=== PATIENT | male | born 1945 | race Caucasian/White ===

== ENCOUNTER → 2018-12-16 | Outpatient (CLI) | payer MEDICARE ==
--- NOTE | 2018-12-16 17:29 | Diagnostic Imaging Report ---
EXAMINATION: CT of the abdomen and pelvis without contrast. TECHNIQUE: Spiral CT images of the abdomen and pelvis were performed from the lung bases to the lesser trochanters. No intravenous contrast was given per renal stone protocol. Coronal and sagittal reformatted images were obtained. COMPARISON: None. CLINICAL HISTORY:History of urinary calculi DISCUSSION: ABSENCE OF INTRAVENOUS CONTRAST DECREASES SENSITIVITY FOR DETECTION OF FOCAL LESIONS AND VASCULAR PATHOLOGY. ABDOMEN/PELVIS: LOWER THORAX: Unremarkable. Atherosclerotic calcification of the coronary arteries. HEPATOBILIARY: Ill-defined 2.4 and 2.2 cm hypodense lesions in hepatic segment III (series 3, image 25). No intra or extrahepatic biliary ductal dilation. GALLBLADDER: Multiple radiopaque calculi are noted in the gallbladder lumen. Mild gallbladder wall thickening, measuring approximately 0.5 cm, however, the gallbladder is contracted. SPLEEN: Mild splenomegaly, measuring 16.4 cm in AP diameter. Innumerable calcified splenic granulomata PANCREAS: No focal masses or ductal dilatation. 3 mm calcifications in the inferior aspect of the pancreatic head (series 3, image 54 and 57). Punctate calcification in the pancreatic tail (3, image 45). ADRENALS: No adrenal nodules. KIDNEYS/URETERS: Right: 6 mm nonobstructing calculus in the superior pole (series 3, image 45). 2 mm nonobstructing calculus versus cortical calcification in the interpolar region (series 3, image 54). No ureteral calculi. Mild right pelviectasis with very mild distal hydroureter. Cortical scarring in the interpolar region (series 3, image 59). No other contour abnormalities or significant perinephric stranding. Left: No renal or ureteral calculi. Moderate to marked left hydronephrosis and moderate left hydroureter. Cortical scarring noted in the left kidney. Minimal perinephric stranding. PELVIC ORGANS/BLADDER: Circumferential bladder wall thickening, predominantly in the anterior inferior aspects, with prominent trabeculations. Prostate is enlarged, measuring approximately 6.3 x 6.9 x 7.1 cm (estimated volume 160 mL). PERITONEUM/RETROPERITONEUM: No free air or fluid. LYMPH NODES: Borderline enlarged distal left periaortic lymph node (series 3, image 97), which measures 1.0 cm in short axis. No other retroperitoneal or any intra-abdominal, pelvic or inguinal adenopathy. VESSELS: Atherosclerotic calcification of the abdominal aorta and iliac vessels. GI TRACT: No bowel dilation or evidence of obstruction. No pericolonic inflammatory changes. BONES AND SOFT TISSUES: No aggressive lytic lesions. Generalized osteopenia. Orthopedic hardware in the proximal right femur. Degenerative changes in bilateral hip joints and lower lumbosacral spine. IMPRESSION: 1. Right renal nonobstructing calculi. No ureteral or bladder calculi. 2. Circumferential bladder wall thickening with prominent trabeculations likely reflecting bladder outlet obstruction from enlarged prostate. 3. Moderate to marked left hydronephrosis and moderate left hydroureter and mild right pelviectasis with very mild distal right hydroureter. No obstructing lesion or stone is noted in this noncontrast exam. 4. Calcifications in the inferior aspect of the pancreatic head and pancreatic tail are indeterminate and may reflect sequela of chronic pancreatitis. Alternatively, these may represent vascular calcifications. 5. Ill-defined 2.4 and 2.2 cm hypodense lesions in hepatic segment III. Recommend contrast-enhanced CT abdomen with liver mass protocol for further evaluation. 6. Cholelithiasis, without CT evidence of cholecystitis. 7. Mild splenomegaly. Signed by: Dr. Moris Torres M.D. on 12/16/2018 5:26 PM
== END ==
LOC: CT 16:10
PROVIDERS: ATTEND Urology
DX: N20.0 Calculus of kidney (principal); K86.9 Disease of pancreas, unspecified; K76.9 Liver disease, unspecified; K80.20 Calculus of gallbladder without cholecystitis without obstruction; R16.1 Splenomegaly, not elsewhere classified
CPT/HCPCS: 74176

== ENCOUNTER 2019-04-14 05:09 | Inpatient (IN) | payer MEDICARE ==
[2019-04-11 14:06] LABS: BASOPHILS # (AUTO) 0.1 (0.0-0.1); BASOPHILS % 0.7 % (0.0-1.0); EOSINOPHILS # (AUTO) 0.3 (0.0-0.4); EOSINOPHILS % 2.3 % (0.0-6.0); HEMATOCRIT 36.8 % (38.2-49.6); HEMOGLOBIN 12.6 g/dL (14.0-18.0); LYMPHOCYTES # (AUTO) 1.8 (1.0-3.2); LYMPHOCYTES % 16.3 % (18.0-39.1); MEAN CORPUSCULAR HEMOGLOBIN 28.3 pg (28-32); MEAN CORPUSCULAR HGB CONC 34.2 g/dL (31-35); MEAN CORPUSCULAR VOLUME 82.7 fL (81-99); MONOCYTES # (AUTO) 0.6 (0.2-0.8); MONOCYTES % 5.2 % (4.4-11.3); NEUTROPHILS # (AUTO) 8.3 (2.1-6.9); NEUTROPHILS % 73.8 % (38.7-80.0); PLATELET COUNT 177 x10e3/uL (140-360); RED BLOOD COUNT 4.45 x10e6/uL (4.3-5.7); RED CELL DISTRIBUTION WIDTH 13.3 % (11.7-14.4)
[2019-04-11 14:22] LABS: CALCIUM 9.5 mg/dL (8.4-10.2); CREATININE, SERUM 4.59 mg/dL (0.72-1.25)
--- NOTE | 2019-04-11 15:40 | Diagnostic Imaging Report ---
Chest, 2 views, 04/11/2019. History: Preop, urologic procedure. Comparison: None available. Findings: The cardiomediastinal silhouette and pulmonary vasculature are within normal limits. The lungs are clear without evidence of consolidation or pleural effusion. Old right-sided rib fractures are noted. Degenerative changes are noted throughout the thoracic spine. There are no acute osseous or soft tissue abnormalities. Impression: No acute cardiopulmonary abnormality. Signed by: Brian Torres on 04/11/2019 3:36 PM
[~2019-04-14] VITALS: Ht 193 cm; Wt 93.9 kg
[~2019-04-14 05:09] MED LIST: AMBIEN10 MG PO; FLOMAX0.4 MG PO; GLYBURIDE5 MG PO; INSULIN SC; METFORMIN HCL500 MG PO
--- OUTSIDE RECORDS SUMMARY | 2019-04-14 05:30 | XMS REPORT ---
Author Author [facility] Address Unknown Phone Unavailable Care Team Providers Care Garment Fitter Name Role Phone LINDSAY PEREZ Unavailable Unavailable Problems This patient has no known problems. Allergies, Adverse Reactions, Alerts This patient has no known allergies or adverse reactions. Medications This patient has no known medications. Results Test Description Test Time Test Comments Text Results Atomic Results Result Comments CHEST 2 VIEWS 2019-04-11 15:34:00 [place] [address] Patient Name: SUN VEGA MR #: [id number] : 1945 Age/Sex: 73/M Req #: [id number] Adm Physician: Ordered by: LINDSAY PEREZ MD Report #: [id number] Location: OR Room/Bed: Procedure: [id number] DX/CHEST 2 VIEWS Exam Date: 04/11/19 Exam Time: 1413 REPORT STATUS: Signed Chest, 2 views, 04/11/2019. History: Preop, urolog ic procedure. Comparison: None available. Findings: The cardiomediastinal silhouette and pulmonary vasculature are within normal limits. The lungs are clear without evidence of consolidation or pleural effusion. Old right-sided rib fractures are noted. Degenerative changes are noted throughout the thoracic spine. There are no acute osseous or soft tissue abnormalities. Impression: No acute cardiopulmonary abnormality. Signed by: Bibiana Torres on 04/11/2019 3:36 PM Dictated By: BIBIANA TORRES MD 35 Transcribed By: JAMES on 04/11/191535 COPY TO: LINDSAY PEREZ MD RENAL SCAN W/LASIX 2019-03-14 12:18:00 [place] [address] Patient Name: SUN VEGA MR #: [id number] : 1945 Age/Sex: 73/M Req #: [id number] Adm Physician: Ordered by: LINDSAY PEREZ MD Report #: [id number] Location: [place] Room/Bed: Procedure: [id number] NM/RENAL SCAN W/LASIX Exam Date: Exam Time: REPORT STATUS: Signed Renal Scan with Lasix Washout Clinical information: Hydronephrosi s, unspecified Technique: Following intravenous administration of 10 mCi of Tc-99m MAG3, dynamic images of the kidneys in the posterior projection were obtained through 40 minutes. Lasix 40 mg was administered intravenously at 10 minutes post injection of the tracer. Report: Left kidney: Perfusion of the left kidney is prompt. The kidney has an elongated reniform shape with marked thinning of the renal cortex. Extraction of tracer from the blood pool is decreased. Clearance of tracer from the renal parenchyma is begins promptly but is not complete by the end of the study. The pelvicalyceal system is not dilated although a few calices are mildly prominent. Minimally increased pooling of tracer is seen within the pelvicalyceal system. No net drainage of tracer from the pelvicalyceal system is seen prior to administration of Lasix. No washout of tracer from the pelvicalyceal system following administration of Lasix is seen; this renders an undefined T-1/2. No significant stasis of tracer is seen within the left ureter. Right kidney: Perfusion of the left kidney is prompt. The kidney has an elongated reniform shape with marked thinning of the renal cortex. Extraction of tracer from the blood pool is decreased. Clearance of tracer from the renal parenchyma is begins promptly but is not complete by the end of the study. The pelvicalyceal system is not dilated although a few calices are mildly prominent. Minimally increased pooling of tracer is seen within the pelvicalyceal system. No net drainage of tracer from the pelvicalyceal system is seen prior to administration of Lasix. No washout of tracer from the pelvicalyceal system following administration of Lasix is seen; this renders an undefined T-1/2. No significant stasis of tracer is seen within the right ureter. Differential renal function: The left kidney contributes 50% of total renal function and the right kidney contributes 50% (normal 43-57%). Impression: Both kidneys show evidence of severe medical renal disease. The kidneys do not have sufficient function to be able to fill the pelvicalyceal systems to near capacity. Hydronephrosis is present in both kidneys, evidenced by elongated shape, thinned renal cortex. The flat renograms after administration of Lasix suggests that physiologically significant obstruction at the UPJ is present, however, the sensitivity of Lasix washout for accurate detection of significant partial obstruction is decreased due to the poor function of the kidneys. Signed by: Dr. Benjamin Joshi M.D. on 03/14/2019 12:36 PM Dictated By: BENJAMIN JOSHI MD 1236 Transcribed By: JAMES on 03/14/19 1236 COPY TO: LINDSAY PEREZ MD CT ABDOMEN/PELVIS WO 2018-12-16 17:10:00 [place] [address] Patient Name: SUN VEGA MR #: [id number] : 1945 Age/Sex: 73/M Req #: [id number] Adm Physician: Ordered by: LINDSAY PEREZ MD Report #: [id number] Location: CT Room/Bed: Procedure: [id number] CT/CT ABDOMEN/PELVIS WO Exam Date: Exam Time: REPORT STATUS: Signed EXAMINATION: CT of the abdomen and pelvis without contrast. TECH NIQUE: Spiral CT images of the abdomen and pelvis were performed from the lung bases to the lesser trochanters. No intravenous contrast was given per renal stone protocol. Coronal and sagittal reformatted images were obtained. COMPARISON: None. CLINICAL HISTORY:History of urinary calculi DISCUSSION: ABSENCE OF INTRAVENOUS CONTRAST DECREASES SENSITIVITY FOR DETECTION OF FOCAL LESIONS AND VASCULAR PATHOLOGY. ABDOMEN/PELVIS: LOWER THORAX: Unremarkable. Atherosclerotic calcification of the coronary arteries. HEPATOBILIARY: Ill-defined 2.4 and 2.2 cm hypodense lesions in hepatic segment III (series 3, image 25). No intra or extrahepatic biliary ductal dilation. GALLBLADDER: Multiple radiopaque calculi are noted in the gallbladder lumen. Mild gallbladder wall thickening, measuring approximately 0.5 cm, however, the gallbladder is contracted. SPLEEN: Mild splenomegaly, measuring 16.4 cm in AP diameter. Innumerable calcified splenic granulomata PANCREAS: No focal masses or ductal dilatation. 3 mm calcifications in the inferior aspect of the pancreatic head (series 3, image 54 and 57). Punctate calcification in the pancreatic tail (3, image 45). ADRENALS: No adrenal nodules. KIDNEYS/URETERS: Right: 6 mm nonobstructing calculus in the superior pole (series 3, image 45). 2 mm nonobstructing calculus versus cortical calcification in the interpolar region (series 3, image 54). No ureteral calculi. Mild right pelviectasis with very mild distal hydroureter. Cortical scarring in the interpolar region (series 3, image 59). No other contour abnormalities or significant perinephric stranding. Left: No renal or ureteral calculi. Moderate to marked left hydronephrosis and moderate left hydroureter. Cortical scarring noted in the left kidney. Minimal perinephric stranding. PELVIC ORGANS/BLADDER: Circumferential bladder wall thickening, predominantly in the anterior inferior aspects, with prominent trabeculations. Prostate is enlarged, measuring approximately 6.3 x 6.9 x 7.1 cm (estimated volume 160 mL). PERITONEUM/RETROPERITONEUM: No free air or fluid. LYMPH NODES: Borderline enlarged distal left periaortic lymph node (series 3, image 97), which measures 1.0 cm in short axis. No other retroperitoneal or any intra- abdominal, pelvic or inguinal adenopathy. VESSELS: Atherosclerotic calcification of the abdominal aorta and iliac vessels. GI TRACT: No bowel dilation or evidence of obstruction. No pericolonic inflammatory changes. BONES AND SOFT TISSUES: No aggressive lytic lesions. Generalized osteopenia. Orthopedic hardware in the proximal right femur. Degenerative changes in bilateral hip joints and lower lumbosacral spine. IMPRESSION: 1. Right renal nonobstructing calculi. No ureteral or bladder calculi. 2. Circumferential bladder wall thickening with prominent trabeculations likely reflecting bladder outlet obstruction from enlarged prostate. 3. Moderate to marked left hydronephrosis and moderate left hydroureter and mild right pelviectasis with very mild distal right hydroureter. No obstructing lesion or stone is noted in this noncontrast exam. 4. Calcifications in the inferior aspect of the pancreatic head and pancreatic tail are indeterminate and may reflect sequela of chronic pancreatitis. Alternatively, these may represent vascular calcifications. 5. Ill-defined 2.4 and 2.2 cm hypodense lesions in hepatic segment III. Recommend contrast-enhanced CT abdomen with liver mass protocol for further evaluation. 6. Cholelithiasis, without CT evidence of cholecystitis. 7. Mild splenomegaly. Signed by: Dr. Toby Torres M.D. on 12/16/2018 5:26 PM Dictated By: TOBY TORRES MD 25 Transcribed By: JAMES on 12/16/181725 COPY TO: LINDSAY PEREZ MD
--- OUTSIDE RECORDS SUMMARY | 2019-04-14 05:30 | XMS REPORT ---
Author Author Admin, [place] Organization [facility] Address [address] [place] [address] Phone Allergies, Adverse Reactions, Alerts Allergy Name Reaction Description Start Date Severity Status Provider No Known Allergies Dianna López MA Conditions or Problems Problem Name Problem Code Onset Date Status Entry Date Provider Comment Standard Description Annotate Chronic pain 338.29 Active Brittany Alaniz MD Other chronic pain DIABETES MELLITUS, TYPE II 250.00 Active Brittany Alaniz MD Diabetes mellitus without mention of complication, type II or unspecified type, not stated as uncontrolled Hx of benign prostatic hypertrophy V13.8 Active Brittany Alaniz MD Personal history of other specified diseases HYPERTENSION 401.9 Active Brittany Alaniz MD Unspecified essential hypertension Medication List Medication Instructions Start Date Stop Date Generic Name NDC Status Provider Patient Instruction DOXAZOSIN MESYLATE 8 MG ORAL TABLET one tablet once daily DOXAZOSIN MESYLATE 11643823176 Active Brittany Alaniz MD Active GLYBURIDE 5 MG ORAL TABLET TK 1 T PO QAM WITH JEANINE GLYBURIDE 42751332061 Active Brittany Alaniz MD Active Vital Signs Date Name Value Unit Range Description height E&M 76 [in_us] Bdy height Encounters Date Encounter Provider Code Facility 16:13:09 CDT Ofc Vst, New Level III Brittany Alaniz MD [id number] [facility]
[2019-04-14] MEDS ORDERED: CEFTRIAXONE SOD 1 GM/NS 50 ML 50 ML IV ONE (05:49)
[2019-04-14] MEDS ORDERED: B&O 60MG R/S 60 MG SUPP PR ONE (06:43)
[2019-04-14] MEDS ORDERED: IOPAMIDOL 300MG/ML 50ML INFUS..BTL IV ONE (06:43)
[2019-04-14] MEDS ORDERED: INSULIN REGULAR, HUMAN 100 UNIT/1 ML 3ML VIAL ONE (06:57)
[2019-04-14] MEDS: SODIUM CHLORIDE 0.9% 1000ML 1,000 ML IV SCH ×2 (08:22→21:42)
[2019-04-14] MEDS ORDERED: ACETAMINOPHEN 1000 MG/100 ML IV PRN (08:30)
[2019-04-14] MEDS ORDERED: ONDANSETRON HCL INJ 2MG/ML 2ML 2 MG/ML VIAL IV PRN (08:30)
[2019-04-14] MEDS ORDERED: DIPHENHYDRAMINE HCL INJ 50 MG/ML VIAL IM PRN (08:30)
[2019-04-14] MEDS ORDERED: ACETAMINOPHEN/CODEINE 300MG - 30MG TAB PO PRN (08:30)
[2019-04-14] MEDS ORDERED: B&O 60MG R/S 60 MG SUPP PR PRN (08:30)
[2019-04-14] MEDS ORDERED: FENTANYL CITRATE/PF 100MCG/2 ML INJ ONE ×4 (08:35→18:49)
--- NOTE | 2019-04-14 08:54 | Diagnostic Imaging Report ---
Exam: Retrograde bilateral ureterogram Clinical history: Hydronephrosis Total images 6 Findings: Retrograde urethrogram was performed in the OR. Radiologist was not present. There is severe hydronephrosis and hydroureter noted to opacify portion of the collecting system. A internal right ureteral stent was inserted with the proximal tip in the renal pelvis and the distal tip in the pelvic region. The bladder was not opacified and the actual location of the distal tip cannot be confirmed. Signed by: Dr. Pradip Moya MD on 04/14/2019 8:52 AM
[2019-04-14] MEDS ORDERED: HYDROMORPHONE 1MG/1ML INJ ONE ×2 (08:58→09:42)
[2019-04-14] MEDS: DOCUSATE SODIUM 100 MG CAP PO SCH ×2 (09:00→17:00)
[2019-04-14 10:33] LABS: BASOPHILS # (AUTO) 0.1 (0.0-0.1); BASOPHILS % 0.6 % (0.0-1.0); EOSINOPHILS # (AUTO) 0.3 (0.0-0.4); EOSINOPHILS % 2.7 % (0.0-6.0); HEMATOCRIT 37.4 % (38.2-49.6); HEMOGLOBIN 12.8 g/dL (14.0-18.0); LYMPHOCYTES % 19.3 % (18.0-39.1); MEAN CORPUSCULAR HEMOGLOBIN 28.5 pg (28-32); MEAN CORPUSCULAR HGB CONC 34.2 g/dL (31-35); MEAN CORPUSCULAR VOLUME 83.3 fL (81-99); MONOCYTES # (AUTO) 0.7 (0.2-0.8); MONOCYTES % 6.3 % (4.4-11.3); NEUTROPHILS # (AUTO) 7.3 (2.1-6.9); NEUTROPHILS % 69.8 % (38.7-80.0); PLATELET COUNT 156 x10e3/uL (140-360); RED BLOOD COUNT 4.49 x10e6/uL (4.3-5.7); RED CELL DISTRIBUTION WIDTH 13.4 % (11.7-14.4)
[2019-04-14 10:46] LABS: INR 0.99; PARTIAL THROMBOPLASTIN TIME 32.4 seconds (23.8-35.5); PROTHROMBIN TIME 13.7 seconds (11.9-14.5)
[2019-04-14 10:54] LABS: ANION GAP 16.6 mmol/L (8-16); CALCIUM 8.8 mg/dL (8.4-10.2); CREATININE, SERUM 4.75 mg/dL (0.72-1.25); POTASSIUM 4.6 mmol/L (3.5-5.1)
--- NOTE | 2019-04-14 13:00 | NUR ---
RECEIVED REPORT FROM [facility]. PATIENT ARRIVED TO UNIT AT 1300 FROM PACU VIA STRETCHER. ALEXANDER IN PLACE WITH BLADDER IRRIGATION. PATIENT AWAKE, ALERT AND ORIENTED, DENIES PAIN AT THIS TIME. TRANSFERRED TO BED WITH MINIMAL ASSIST. ORIENTED TO ROOM, CALL LIGHT, BED RAILS, TV, VERBALIZED UNDERSTANDING. BELONGINGS WITH PATIENT. CALL LIGHT WITHIN REACH.
[2019-04-14 13:07] VITALS: BP 184/91
[2019-04-14 13:25] VITALS: BP 184/91
[2019-04-14] MEDS ORDERED: DEXTROSE 50% SYRINGE 50 ML IV PRN (13:45)
[2019-04-14] MEDS ORDERED: AMLODIPINE BESYLATE 5 MG TAB PO ONE (14:30)
[2019-04-14] MEDS ORDERED: LIDOCAINE HCL 1% LOCAL INJ 20 ML VIAL ONE ×2 (14:55)
[2019-04-14] MEDS ORDERED: MIDAZOLAM HCL 2 MG/2 ML VIAL ONE ×2 (15:12→16:47)
--- NOTE | 2019-04-14 15:25 | NUR ---
PATIENT OFF THE UNIT TO RADIOLOGY FOR PROCEDURE.
[2019-04-14 16:00] VITALS: BP 183/93
[2019-04-14] MEDS: INSULIN LISPRO 100 UNIT/1 ML 3ML VIAL SQ SCH ×2 (16:30→21:00)
[2019-04-14] MEDS ORDERED: SODIUM CHLORIDE 0.9% 500ML 500 ML ONE (16:36)
[2019-04-14] MEDS ORDERED: DEXAMETHASONE SOD PHOS INJ 4 MG/ML VIAL ONE (18:31)
[2019-04-14] MEDS ORDERED: GLYCOPYRROLATE INJ 0.2 MG/ML VIAL ONE (18:31)
[2019-04-14] MEDS ORDERED: LIDOCAINE HCL 2% LOCAL INJ 5 ML SDV VIAL INJ ONE (18:31)
[2019-04-14] MEDS ORDERED: ONDANSETRON HCL INJ 2MG/ML 2ML 2 MG/ML VIAL ONE (18:31)
[2019-04-14] MEDS ORDERED: SEVOFLURANE INHAL SOLN 250 ML PEN BTL ONE (18:31)
[2019-04-14] MEDS ORDERED: PROPOFOL IV EMULSION 10 MG/ML 20 ML VIAL ONE (18:31)
--- NOTE | 2019-04-14 19:10 | NUR ---
Received the patient in report.stable condition.
[2019-04-14 20:00] VITALS: BP 180/81
[2019-04-14] MEDS ORDERED: ZOLPIDEM TARTRATE 10 MG TAB PO PRN (21:00)
--- NOTE | 2019-04-14 21:00 | History and Physical ---
CHIEF COMPLAINT: Worsening of renal failure and obstructive uropathy. HISTORY OF PRESENT ILLNESS: This is a 73-year-old male with a past medical history of obstructive uropathy, BPH, hypertension, diabetes, was in his usual state of health until the patient was seen by Dr. Longo in office for his obstruction uropathy, BPH, renal failure. The patient was admitted for stent today, but they put a left ureteral stent, but unable to do anything on the right side, so he was admitted for further. Invasive Radiology's opinion and care also obtained. Renal consult for worsening of renal failure. No fever, no headache, no dizziness, no leg pain or leg swelling, no abdominal pain, no nausea, no vomiting, no diarrhea, no constipation. ALLERGIES: NO KNOWN DRUG ALLERGIES. PAST MEDICAL HISTORY: 1. Hypertension. 2. Diabetes mellitus type 2. 3. Obstructive uropathy. 4. BPH. PAST SURGICAL HISTORY: Just recent stent and on right ureter today. HABITS: Smoking cigarette occasionally and occasional alcohol use. No illicit drug use. SOCIAL HISTORY: The patient is , lives with his . REVIEW OF SYSTEMS: GENERAL: Denies fatigue and weakness. HEENT: No diplopia or blurring of vision. CARDIOPULMONARY: No chest pain. No shortness of breath. No cough. ALIMENTARY SYSTEM: No nausea or vomiting. GENITOURINARY SYSTEM: He has some dysuria. MUSCULOSKELETAL SYSTEM: No joint pain. CENTRAL NERVOUS SYSTEM: No focal weakness. PHYSICAL EXAMINATION: GENERAL: A 73-year-old male, who is alert, oriented x3. No gross distress. VITAL SIGNS: Temperature 98.2, pulse 80, respiratory rate 18, blood pressure 157/80. HEENT: Head is atraumatic and normocephalic. Pupils bilaterally equal to light. EOMs intact. NECK: Supple. No JVD. No carotid bruit. LUNGS: Clear to auscultation and percussion bilaterally. No added sounds. HEART: S1, S2. Regular rate and rhythm. No S3, no S4 or murmur. ABDOMEN: Soft and nontender. No guarding. No rigidity. EXTREMITIES: No pedal edema. Peripheral pluses +1. MANAGER DISTRIBUTION: Grossly nonfocal. LABORATORY DATA: Chest x-ray normal. CBC, white count 10.40, hemoglobin 12.8, hematocrit 37.4, platelets are 156. Sodium 137, potassium 4.6, BUN 66, creatinine 4.75. ASSESSMENT: 1. Worsening of renal failure. 2. Obstructive uropathy, status post left ureteral stent, still right obstructive uropathy. 3. Diabetes. 4. Hypertension. PLAN: Admit to surgical floor. Nephrology consult Dr. Roth. CBC, CMP in the morning. Sliding scale blood sugar. Continue home medicine. Add amlodipine 5 mg q.a.m. daily. Blood sugar checkup before meals and at bedtime with sliding scale. Continue Flomax. Case discussed with Dr. Longo. MD ADOLPH Cline/MODL /[id number]
[2019-04-14 22:43] VITALS: BP 150/64
[2019-04-14 22:58] VITALS: BP 150/64
[2019-04-15] VITALS: BP 160/72
--- NOTE | 2019-04-15 02:24 | NUR ---
VOMITED X1.INJ.ZOFRAN 4MG IV GIVEN.ALEXANDER CARE GIVEN.NO RESP.DISTRESS.REFUSED TO TAKE PAIN MEDICATION.RESTING COMFORTABLY.BED LOCKED AND IN LOWEST POSITION.PHONE AND CALL LIGHT WITHIN REACH.INSTRUCTED TO CALL FOR ASSISTANCE NEEDED.
[2019-04-15 04:00] VITALS: BP 145/73
[2019-04-15] MEDS ORDERED: CEFTRIAXONE SOD 1 GM/NS 50 ML 50 ML IV SCH (06:00)
[2019-04-15 06:04] LABS: BASOPHILS # (AUTO) 0.1 (0.0-0.1); BASOPHILS % 0.5 % (0.0-1.0); EOSINOPHILS # (AUTO) 0.2 (0.0-0.4); HEMATOCRIT 32.8 % (38.2-49.6); HEMOGLOBIN 11.1 g/dL (14.0-18.0); LYMPHOCYTES # (AUTO) 2.1 (1.0-3.2); LYMPHOCYTES % 17.3 % (18.0-39.1); MEAN CORPUSCULAR HEMOGLOBIN 28.4 pg (28-32); MEAN CORPUSCULAR HGB CONC 33.8 g/dL (31-35); MEAN CORPUSCULAR VOLUME 83.9 fL (81-99); MONOCYTES # (AUTO) 0.8 (0.2-0.8); MONOCYTES % 6.9 % (4.4-11.3); NEUTROPHILS # (AUTO) 8.7 (2.1-6.9); NEUTROPHILS % 72.2 % (38.7-80.0); PLATELET COUNT 168 x10e3/uL (140-360); RED BLOOD COUNT 3.91 x10e6/uL (4.3-5.7); RED CELL DISTRIBUTION WIDTH 13.5 % (11.7-14.4)
[2019-04-15 06:32] LABS: ALBUMIN/GLOBULIN RATIO 0.9 (0.8-2.0); ANION GAP 15.4 mmol/L (8-16); CALCIUM 8.3 mg/dL (8.4-10.2); CREATININE, SERUM 4.66 mg/dL (0.72-1.25); POTASSIUM 4.4 mmol/L (3.5-5.1)
--- NOTE | 2019-04-15 06:50 | NUR ---
RECEIVED REPORT FROM [facility] ACOSTA. PATIENT AWAKE AT THIS TIME, DENIES PAIN. NO VISIBLE SIGNS OF DISTRESS NOTED. CALL LIGHT WITHIN REACH.
--- NOTE | 2019-04-15 07:00 | NUR ---
BED SIDE SHIFT REPORT GIVEN TO ONCOMING RN.STABLE CONDITION.
--- NOTE | 2019-04-15 07:20 | NUR ---
PER DR. Silvio PEREZ, PATIENT IS CLEARED FOR DISCHARGE FROM HIS STANDPOINT. CONTINUOUS BLADDER IRRIGATION TO BE DISCONTINUED, KEEP ALEXANDER IN PLACE. RIGHT NEPHROSTOMY TUBE TO BE DISCONTINUED AND CLAMPED. PATIENT TO ARRANGE FOLLOW UP FOR NEXT WEEK.
[2019-04-15] MEDS: INSULIN LISPRO 100 UNIT/1 ML 3ML VIAL SQ SCH ×2 (07:30→11:30)
[2019-04-15 08:00] VITALS: BP 182/88
--- NOTE | 2019-04-15 08:15 | NUR ---
DR. HOUSTON AT BEDSIDE. PATIENT CAN BE DISCHARGED ONCE CLEARED FROM NEPHROLOGY. DISCHARGE WITH HOME HEALTH AND FOLLOW UP WITHIN ONE WEEK.
[2019-04-15 08:31] VITALS: BP 182/88
[2019-04-15] MEDS ORDERED: AMLODIPINE BESYLATE 5 MG TAB PO SCH (09:00)
[2019-04-15] MEDS ORDERED: TAMSULOSIN HCL 0.4 MG CAP PO SCH (09:00)
[2019-04-15] MEDS: DOCUSATE SODIUM 100 MG CAP PO SCH (10:50)
[2019-04-15 11:10] LABS: ANION GAP 14.4 mmol/L (8-16); CALCIUM 7.9 mg/dL (8.4-10.2); CREATININE, SERUM 4.47 mg/dL (0.72-1.25); POTASSIUM 4.4 mmol/L (3.5-5.1)
--- NOTE | 2019-04-15 11:15 | NUR ---
PER DR. Patrizia IGLESIAS, PATIENT IS CLEARED FOR DISCHARGE FROM HIS POINT OF VIEW. PATIENT IS TO FOLLOW UP AT THE [facility] OFFICE. BMP TO BE CHECKED ON 04/17, RENAL LABS 04/22, AND FOLLOW UP APPOINTMENT FOR 04/24/19. DR. HOUSTON NOTIFIED.
[2019-04-15] MEDS: SODIUM CHLORIDE 0.9% 1000ML 1,000 ML IV SCH (11:19)
[2019-04-15 12:00] VITALS: BP 186/108
--- NOTE | 2019-04-15 12:30 | NUR ---
CALLED DR. Joshua HOUSTON AT [phone] REGARDING BP OF 186/108. SPOKE TO JOSIE. PAGED AWAITING CALL BACK.
--- NOTE | 2019-04-15 13:20 | NUR ---
DR. HOUSTON CALLED BACK. ORDERED FOR CLONIDINE 0.1MG PO NOW, THEN CLONIDINE 0.1MG PO EVERY 8 HOURS PRN SBP GREATER THAN 160 OR DBP GREATER THAN 100. ORDER READ BACK AND VERIFIED.
[2019-04-15] MEDS ORDERED: CLONIDINE HCL 0.1 MG TAB PO PRN (13:30)
--- NOTE | 2019-04-15 14:00 | NUR ---
SPOKE WITH PT ABOUT HOME HEALTH ORDER, HE SIGNED CHOICE FOR [facility], FILED IN CHART AND FAXED TO COMPANY.
[2019-04-15 14:10] VITALS: BP 175/86
--- NOTE | 2019-04-15 14:15 | NUR ---
PATIENT REQUESTING TO LEAVE AGAINST MEDICAL ADVICE. DR. Joshua HOUSTON CALLED ON [phone]. DR. HOUSTON ON PHONE WITH PATIENT. ADVISED OF RISKS OF LEAVING AGAINST MEDICAL ADVICE. PATIENT VERBALIZED UNDERSTANDING AND REQUESTS TO LEAVE DESPITE RISKS. RN NURSE TENNIS INSTRUCTOR NOTIFIED.
[2019-04-15] MEDS ORDERED: CLONIDINE HCL 0.1 MG TAB PO ONE (14:20)
--- NOTE | 2019-04-15 14:47 | NUR ---
PATIENT LEFT AGAINST MEDICAL ADVICE WITHOUT INCIDENT. IV DISCONTINUED WITH DISTAL TIP INTACT, DRESSING APPLIED WITH NO BLEEDING NOTED. NEPHROSTOMY AND ALEXANDER CATHETER REMAIN IN PLACE. SUPPLIES PROVIDED WITH SELF CARE INSTRUCTIONS. VERBALIZED UNDERSTANDING WITH UNSUCCESSFUL RETURN DEMONSTRATION. ALL BELONGINGS RETURNED TO PATIENT. REFUSED ASSISTANCE. AMBULATED INDEPENDENTLY TO PRIVATE VEHICLE.
--- NOTE | 2019-04-15 18:00 | Consultation ---
DATE OF CONSULTATION: 04/15/2019 Renal Consult REASON FOR CONSULT: Acute kidney failure on chronic kidney disease. HISTORY OF PRESENT ILLNESS: This is a 73-year-old male with history of hypertension, type 2 diabetes mellitus, BPH, and obstructive uropathy, who was seen by Dr. Longo for his obstructive uropathy. The patient had left ureteral stent and was admitted and all also had right nephroureteral stent and a Marc placed secondary to a large prostate. PAST SURGICAL HISTORY: 1. Right ureteral stent. 2. Left ureteral stent. SOCIAL HISTORY: Smoking cigarette occasionally. Occasional alcohol. Lives with his . PAST MEDICAL HISTORY: Include: 1. Hypertension. 2. Type 2 diabetes mellitus. 3. Obstructive uropathy. 4. BPH. 5. CKD stage 4 with baseline creatinine close to 4 as outpatient in March. REVIEW OF SYSTEMS: No fatigue. No weakness. No diplopia. No chest pain. No shortness of breath. No change in vision. No change in hearing. No sensory loss or motor loss. Positive blood in the urine. No skin changes. Basically otherwise negative. PHYSICAL EXAMINATION: GENERAL: Alert, following commands. HEENT: Pupils equal, reactive to light and accommodation. NECK: No JVD. No bruit. LUNGS: Rhonchi. No rales. HEART: Regular rate and rhythm. No S3. No S4. ABDOMEN: Nontender and nondistended. No hepatomegaly or splenomegaly. EXTREMITIES: No clubbing. No cyanosis. No edema. ASSESSMENT AND PLAN: 1. Obstructive uropathy, status post Marc and stent. Currently, creatinine is 4.6, upon repeat at 10 o'clock, it is improved to 4.47. 2. Anemia of chronic disease, currently with a hemoglobin of 11.1, but he is also having hematuria. 3. Hypertension, currently stable. 4. Type 2 diabetes mellitus. We will monitor his glucose. 5. Obstructive uropathy, status post stenting. Following with Urology. 6. Chronic kidney disease, stage 4. We will follow up as outpatient. The patient will see me in 2 weeks and he will have labs weekly. The patient is adamant about going home today. Ton Jim MD MA/MICAELA /[id number]
--- NOTE | 2019-04-25 14:21 | Diagnostic Imaging Report ---
Exam: Right nephroureteral stent insertion Clinical History: Right hydronephrosis Consent: Benefits and risks were explained to the patient who gave consent to the procedure. Sedation: The procedure was performed with conscious sedation. Continuous cardiorespiratory monitoring was performed by a registered nurse throughout the procedure. The total sedation time is 45 minutes. Fluoro Time: 5.8 Minutes Total Images: 5 Medication: Versed 3 mg IV, fentanyl 150 mcg IV Procedure: Sterile barrier technique was followed including cap, mask, sterile gown, sterile gloves, sterile sheet, hand hygiene and 2% chlorhexidine for cutaneous antisepsis. The right flank was prepped and draped in usual sterile fashion. 2% lidocaine was used as local anesthetic. Under ultrasound guidance, the right interpolar region renal calyx was accessed followed by antegrade nephrostogram which demonstrated severe hydronephrosis. Under fluoroscopic guidance, a 10.2 [place] nephroureteral stent was inserted with the distal tip in the urinary bladder and the proximal loop in the renal pelvis. The catheter was secured using silk and left to gravity drainage. Hemostasis was achieved. The patient tolerated the procedure well without any adverse reactions. He left the department in stable condition. Complication: None immediate Impression: 1. Right nephroureteral stent insertion as described. Signed by: Dr. Pradip Moya MD on 04/14/2019 6:19 PM
--- NOTE | 2019-05-19 06:29 | Operative Report ---
DATE OF PROCEDURE: 04/14/2019 SURGEON: Sergio Longo MD PREOPERATIVE DIAGNOSES: 1. Left hydronephrosis. 2. Urinary tract infections. 3. Hematuria. POSTOPERATIVE DIAGNOSES: 1. Left hydronephrosis. 2. Urinary tract infections. 3. Hematuria. OPERATIONS PERFORMED: 1. One cystourethroscopy with left ureteral catheterization and retrograde ureteropyelography (separate procedure performed for the hematuria and urinary tract infections). 2. Interpretation of retrograde ureteropyelography. 3. Supervision of fluoroscopy, no radiologist present. 4. Cystourethroscopy with insertion of left indwelling ureteral stent (separate procedure performed for the diagnosis of the hydronephrosis). 5. Interpretation of cystography. ANESTHESIA: General. COMPLICATIONS: None. CLINICAL SUMMARY: Taras Doshi is a 73-year-old with bilateral hydronephrosis and renal insufficiency. He is brought for placement of bilateral stents. He is aware of the risks of bleeding, infection, injury to adjacent structures, need for additional procedures and elected to proceed. OPERATIVE PROCEDURE IN DETAIL: Informed consent was verified. Taras Doshi was properly identified, taken to the operating room, placed on the cystoscopy table in supine position. Anesthesia was uneventfully begun. The patient was then carefully gently repositioned in a dorsal lithotomy position with all pressure points well padded. His genitalia were prepared and draped in usual sterile fashion. The cystoscope sheath with the visual obturator in place was atraumatically inserted. The patient's urethra, it was guided down to the unremarkable distal urethra through the normal sphincteric region through the prostate bed, which was significant for a very large visually obstructing BPH with kissing lateral lobes and a prominent median lobe. We entered the patient's bladder. Panendoscopy revealed no suspicious mucosal lesions. There were trabeculations noted. There was active bleeding that was noted from the prostate. Visualization was suboptimal. Somehow, we found the left ureter, guided the wire into it as well as an open-ended catheter and retrograde pyelograms were performed. With cystoscopic fluoroscopic guidance, we placed an indwelling ureteral stent, coiled in the patient's left kidney as well as the patient's bladder. The retaining suture was cut short. This was a very difficult stent placement due to severe tortuosity. Interpretation of retrograde ureteropyelography contrast was instilled in a retrograde fashion on the left hand side. There was chronic appearing fairly severe hydronephrosis. There was severe ureteral tortuosity. The stent was coiled the patient's kidneys as well as the patient's bladder at the end of the case and it still exhibited the ureteral tortuosity. We were unable to find the right ureteral orifice. This is despite utilizing even laser sheath, so that he can have continuous irrigation. We therefore removed the cystoscope, placed a Marc catheter, placed him on irrigation. A belladonna opium suppository was placed revealing a larger than 50 g prostate that is smooth, non-fluctuant without any nodules. The patient was then uneventfully reversed from anesthesia and taken to recovery room in stable condition. There were no complications to the procedure. The patient tolerated the procedure well. Plans will be to admit the patient, provide irrigation, and have Interventional Radiology place a stent if possible. Sergio Longo MD [place]/MODL /[id number] cc: Thompson Dominguez MD
== END 2019-04-15 14:47 | disposition left against medical advice (07) | DRG 660 ==
LOC: OR 05:09 → PACU V 08:26 → MED/SURG 13:10
PROVIDERS: ADMIT Internal Medicine; ATTEND Internal Medicine
PROC: 0T778DZ Dilation of Left Ureter with Intraluminal Device, Via Natural or Artificial Opening Endoscopic (ICD-10-PCS; 2019-04-14)
PROC: BT141ZZ Fluoroscopy of Kidneys, Ureters and Bladder using Low Osmolar Contrast (ICD-10-PCS; 2019-04-14)
PROC: 0T9330Z Drainage of Right Kidney Pelvis with Drainage Device, Percutaneous Approach (ICD-10-PCS; 2019-04-14)
PROC: 0T768ZZ Dilation of Right Ureter, Via Natural or Artificial Opening Endoscopic (ICD-10-PCS; principal; 2019-04-14 07:00)
DX: N13.30 Unspecified hydronephrosis (principal); N13.8 Other obstructive and reflux uropathy; N40.1 Benign prostatic hyperplasia with lower urinary tract symptoms; N39.0 Urinary tract infection, site not specified; N17.9 Acute kidney failure, unspecified; N18.4 Chronic kidney disease, stage 4 (severe); I10 Essential (primary) hypertension; E11.9 Type 2 diabetes mellitus without complications; R35.1 Nocturia; D63.8 Anemia in other chronic diseases classified elsewhere; E11.22 Type 2 diabetes mellitus with diabetic chronic kidney disease; I12.9 Hypertensive chronic kidney disease with stage 1 through stage 4 chronic kidney disease, or unspecified chronic kidney disease; Z79.4 Long term (current) use of insulin; R31.9 Hematuria, unspecified
CPT/HCPCS: 36415; 50433; 71046; 74420; 74470; 76942; 80048; 80053; 82948; 83036; 85025; 85610; 85730; 87086; 87186; 93005; C1758; C1769; C2617; C2625; J0696; J1100; J1170; J1817; J2001; J2250; J2405; J3010; J7030; J7040

== ENCOUNTER 2019-05-09 13:22 | Inpatient (IN) | payer MEDICARE ==
[~2019-05-09] VITALS: Ht 193 cm; Wt 93.9 kg
[~2019-05-09 13:22] MED LIST changes: +CEFTRIAXONE SOD 1 GM/NS 50 ML 50 ML IV ONE; +GENTAMICIN 80MG/NS 100 ML 200 ML IV ONE; +SODIUM CHLORIDE 0.9% 1000ML 1,000 ML ONE
[2019-05-09] MEDS ORDERED: INSULIN REGULAR, HUMAN 100 UNIT/1 ML 3ML VIAL ONE ×2 (13:38→14:20)
[2019-05-09] MEDS ORDERED: B&O 60MG R/S 60 MG SUPP PR ONE (13:42)
[2019-05-09] MEDS ORDERED: IOPAMIDOL 300MG/ML 50ML INFUS..BTL IV ONE (13:42)
[2019-05-09] MEDS ORDERED: FENTANYL CITRATE/PF 100MCG/2 ML INJ ONE ×2 (13:54→17:28)
[2019-05-09] MEDS ORDERED: MIDAZOLAM HCL 2 MG/2 ML VIAL ONE (13:54)
[2019-05-09] MEDS ORDERED: ONDANSETRON HCL INJ 2MG/ML 2ML 2 MG/ML VIAL ONE (15:04)
[2019-05-09] MEDS ORDERED: LIDOCAINE HCL 2% LOCAL INJ 5 ML SDV VIAL INJ ONE (15:04)
[2019-05-09] MEDS ORDERED: PROPOFOL IV EMULSION 10 MG/ML 20 ML VIAL ONE (15:04)
[2019-05-09] MEDS ORDERED: DEXAMETHASONE SOD PHOS INJ 4 MG/ML VIAL ONE (15:04)
[2019-05-09] MEDS ORDERED: SEVOFLURANE INHAL SOLN 250 ML PEN BTL ONE (15:04)
[2019-05-09] MEDS ORDERED: ACETAMINOPHEN 1000 MG/100 ML IV ONE (15:04)
[2019-05-09] MEDS ORDERED: SOD CHL 0.45%/POT CHL 20MEQ 1,000 ML IV SCH (16:25)
[2019-05-09] MEDS ORDERED: B&O 60MG R/S 60 MG SUPP PR PRN (16:30)
[2019-05-09] MEDS ORDERED: ACETAMINOPHEN/CODEINE 300MG - 30MG TAB PO PRN (16:30)
[2019-05-09] MEDS ORDERED: ONDANSETRON HCL INJ 2MG/ML 2ML 2 MG/ML VIAL IV PRN (16:30)
[2019-05-09] MEDS ORDERED: MORPHINE SULFATE INJ 4 MG/ML INJ 1ML ONE (16:46)
[2019-05-09] MEDS ORDERED: HYDROMORPHONE 1MG/1ML INJ ONE (17:03)
[2019-05-09 17:20] LABS: ANION GAP 12.7 mmol/L (8-16); CALCIUM 8.6 mg/dL (8.4-10.2); POTASSIUM 4.7 mmol/L (3.5-5.1)
[2019-05-09 17:58] LABS: BASOPHILS % 0.4 % (0.0-1.0); EOSINOPHILS # (AUTO) 0.2 (0.0-0.4); EOSINOPHILS % 1.5 % (0.0-6.0); HEMATOCRIT 29.9 % (38.2-49.6); HEMOGLOBIN 9.9 g/dL (14.0-18.0); LYMPHOCYTES # (AUTO) 0.9 (1.0-3.2); LYMPHOCYTES % 9.7 % (18.0-39.1); MEAN CORPUSCULAR HEMOGLOBIN 28.2 pg (28-32); MEAN CORPUSCULAR HGB CONC 33.1 g/dL (31-35); MEAN CORPUSCULAR VOLUME 85.2 fL (81-99); MONOCYTES # (AUTO) 0.3 (0.2-0.8); MONOCYTES % 3.1 % (4.4-11.3); NEUTROPHILS # (AUTO) 8.1 (2.1-6.9); NEUTROPHILS % 83.8 % (38.7-80.0); PLATELET COUNT 198 x10e3/uL (140-360); RED BLOOD COUNT 3.51 x10e6/uL (4.3-5.7); RED CELL DISTRIBUTION WIDTH 12.5 % (11.7-14.4)
[2019-05-09] MEDS ORDERED: ACETAMINOPHEN 1000 MG/100 ML IV PRN (18:00)
[2019-05-09] MEDS ORDERED: ZOLPIDEM TARTRATE 10 MG TAB PO PRN (19:45)
[2019-05-09] MEDS ORDERED: DEXTROSE 50% SYRINGE 50 ML IV PRN (19:45)
[2019-05-09 20:12] VITALS: BP 137/65
[2019-05-09] MEDS: DOCUSATE SODIUM 100 MG CAP PO SCH (21:45)
[2019-05-09] MEDS: PHENAZOPYRIDINE HCL 100 MG TAB PO SCH (21:45)
[2019-05-09] MEDS: INSULIN LISPRO 100 UNIT/1 ML 3ML VIAL SQ SCH (21:45)
[2019-05-10] VITALS (8 sets, daily range): BP systolic 117–159; BP diastolic 54–74
[2019-05-10] MEDS: SODIUM CHLORIDE 0.45% 1,000 ML IV SCH ×3 (02:33→17:00)
--- NOTE | 2019-05-10 03:36 | History and Physical ---
CHIEF COMPLAINT: 1. Benign prostatic hypertrophy. 2. Obstructive uropathy. HISTORY OF PRESENT ILLNESS: This is a 74-year-old male with past medical history of chronic renal failure, hypertension, diabetes, obstructive uropathy. The patient had recently put a left urostomy tube and a right stent by Dr. Longo, but patient is still not getting better. The obstruction not relieved. The patient also had benign prostatic hypertrophy. The patient underwent a TURP today by Dr. Longo. The patient is stable postoperatively. No chest pain. No shortness of breath. No fever. No cough. No leg pain. No leg swelling. Has mild nausea. ALLERGIES: NO KNOWN DRUG ALLERGIES. PAST MEDICAL HISTORY: 1. Diabetes mellitus type 2. 2. Obstructive uropathy. 3. Benign prostatic hypertrophy. 4. Hypertension. PAST SURGICAL HISTORY: History of recent stent on right ureter as well as left urostomy tube recently last month. HABITS: Denies illicit drug use. Smoking cigarettes occasionally and occasional alcohol use. SOCIAL HISTORY: The patient is , lives with his . REVIEW OF SYSTEMS: CONSTITUTIONAL: Denies fatigue or weakness. HEENT: No diplopia or blurring of vision. CARDIOPULMONARY: No chest pain. No shortness of breath. ALIMENTARY SYSTEM: No nausea, no vomiting. GENITOURINARY: No dysuria. No hematuria. MUSCULOSKELETAL: No joint pain. CENTRAL NERVOUS: No focal weakness. No seizures. PHYSICAL EXAMINATION: GENERAL: This is a 74-year-old male who is alert, oriented x3, in no gross distress. VITAL SIGNS: Temperature 97, pulse 64, respiratory rate 18, blood pressure 138/71. HEENT: Head is atraumatic and normocephalic. Pupils bilaterally equal to light. Extraocular muscles intact. NECK: Supple. No JVD. No carotid bruit. LUNGS: Clear to auscultation and percussion bilaterally. No added sound. HEART: S1, S2. Regular rate and rhythm. No S3, S4 or murmur. ABDOMEN: Soft, nontender. No guarding or rigidity. EXTREMITIES: No pedal edema. Peripheral pluses +1. PEDIATRIC PHYSICAL THERAPIST: Grossly nonfocal. LABORATORY DATA: Sodium 134, potassium 4.7, BUN 63, creatinine 4, sugar 180. White count 9.72, hemoglobin 9.9, hematocrit 29.9, platelet is 198. ASSESSMENT: 1. Obstructive uropathy. 2. Benign prostatic hypertrophy, status post transurethral resection of the prostate today. 3. Bilateral ureteral blockage, status post stent. 4. Acute on chronic renal failure. 5. Diabetes mellitus type 2. 6. Hypertension. 7. Anemia. PLAN: Admit to surgical postoperative care by Dr. Longo with IV fluid. We will put on sliding scale lab in the morning. Renal consult with Dr. Jim. Case discussed with the patient all condition, prognosis. MD ADOLPH Cline/MICAELA /[id number]
[2019-05-10 06:14] LABS: BASOPHILS % 0.2 % (0.0-1.0); EOSINOPHILS % 0.1 % (0.0-6.0); HEMATOCRIT 27.2 % (38.2-49.6); LYMPHOCYTES # (AUTO) 1.3 (1.0-3.2); MEAN CORPUSCULAR HEMOGLOBIN 28.1 pg (28-32); MEAN CORPUSCULAR HGB CONC 33.1 g/dL (31-35); MONOCYTES # (AUTO) 0.9 (0.2-0.8); MONOCYTES % 6.2 % (4.4-11.3); NEUTROPHILS # (AUTO) 12.1 (2.1-6.9); NEUTROPHILS % 83.3 % (38.7-80.0); PLATELET COUNT 219 x10e3/uL (140-360); RED CELL DISTRIBUTION WIDTH 12.6 % (11.7-14.4)
[2019-05-10 06:39] LABS: ALBUMIN 2.2 g/dL (3.5-5.0); ALBUMIN/GLOBULIN RATIO 0.6 (0.8-2.0); ANION GAP 11.3 mmol/L (8-16); CALCIUM 8.3 mg/dL (8.4-10.2); CREATININE, SERUM 4.15 mg/dL (0.72-1.25); POTASSIUM 5.3 mmol/L (3.5-5.1)
--- NOTE | 2019-05-10 06:55 | NUR ---
Received patient lying in bed with eyes open. Respiration even and unlabored without SOB. Urinary catheter in placed, intact, draining dark duncan-colored urine to bag. Call light in reach.
[2019-05-10] MEDS: INSULIN LISPRO 100 UNIT/1 ML 3ML VIAL SQ SCH ×4 (07:30→21:30)
[2019-05-10] MEDS: DOCUSATE SODIUM 100 MG CAP PO SCH ×2 (08:49→17:38)
[2019-05-10] MEDS: FAMOTIDINE 20 MG/2 ML VIAL IV SCH ×2 (08:49→17:37)
[2019-05-10] MEDS: PHENAZOPYRIDINE HCL 100 MG TAB PO SCH ×3 (08:50→17:38)
[2019-05-10] MEDS: TAMSULOSIN HCL 0.4 MG CAP PO SCH (08:50)
--- NOTE | 2019-05-10 11:17 | Consultation ---
DATE OF CONSULTATION: 05/10/2019 Renal Consultation REASON FOR CONSULTATION: Acute kidney injury on chronic kidney disease and hyperkalemia. HISTORY OF PRESENT ILLNESS: A 74-year-old male with a history of chronic kidney disease due to obstructive uropathy, hypertension, and diabetes, who was admitted on 05/09/2019 for TURP, removal of nephrostomy tube, and right stent placement on 05/09/2019. The patient recently had a left urostomy tube placed, but kidney function was not improving. The patient was admitted again on 05/09/2019. Today, he was noted to have elevated creatinine, hyperkalemia, and Nephrology consultation was called. The patient does take some occasional Aleve at home and denies ever seeing a vp public relations in the past, just follows with urologists. REVIEW OF SYSTEMS: A 12-point review of systems completed. All systems negative other than mentioned in the HPI above. PAST MEDICAL HISTORY: 1. Chronic kidney disease, unknown baseline. 2. Diabetes type 2. 3. Obstructive uropathy. 4. BPH. 5. Hypertension. PAST SURGICAL HISTORY: History of right ureteral stent as well as left urostomy tube. SOCIAL HISTORY: No alcohol. Positive tobacco. No IV drugs. FAMILY HISTORY: No kidney disease. His family is all . ALLERGIES: NO KNOWN DRUG ALLERGIES. CURRENT MEDICATIONS: See list. PHYSICAL EXAMINATION: VITAL SIGNS: Blood pressure 120/54, pulse 69, respiratory rate 18, and temperature 96.2. GENERAL: In no apparent distress. HEENT: Oropharynx clear. No scleral icterus. No periorbital edema. NECK: Supple. No elevation in jugular venous pressure. No lymphadenopathy. CHEST: Clear to auscultation anteriorly bilaterally. CARDIOVASCULAR: Regular rhythm. No murmurs or rubs. ABDOMEN: Soft. Positive bowel sounds. No tenderness. No rebound. EXTREMITIES: No edema. No clubbing. No cyanosis. SKIN: Warm. : Marc catheter with gross hematuria. LABORATORY DATA: Creatinine on 04/11/2019, was 4.59. Sodium 136, potassium 5.3, chloride 109, CO2 21, BUN 65, creatinine 4.15, estimated GFR 14, glucose 237, and calcium 8.3. White count 14.5, hemoglobin 9, hematocrit 27.2, and platelets 219. IMAGING DATA: Renal scan done on 03/14/2019, both kidneys show evidence of severe medical renal disease. The kidneys do not have sufficient function to be able to fill the pelvicaliceal system. Hydronephrosis is present in both kidneys. Differential function unable to be accurately determined, 50% of total right renal function, 50% of left kidney function. ASSESSMENT AND PLAN: 1. Acute kidney injury on chronic kidney disease, unknown baseline, suspect the patient has stage 4/5 chronic kidney disease due to obstructive uropathy. We will need to avoid all nephrotoxic medications. His kidney function is slightly improved from previous labs. We will follow. 2. Hyperkalemia. Placed on diabetic 2 g potassium restriction. We will repeat. 3. Euvolemic on exam. 4. Hypertension. Blood pressure controlled. 5. Anemia, suspect secondary to chronic kidney disease. We will check iron stores. MD CHAD Phelan/MICAELA /[id number]
--- NOTE | 2019-05-10 13:06 | NUR ---
Notified Dr. Dominguez about bedside glucose level of 351. Verbal order given to give Levemir 20 Units BID.
[2019-05-10] MEDS ORDERED: SOD POLYSTYRENE SULFONATE SUSP 15 GM/60 ML BTL PO NR (13:15)
[2019-05-10] MEDS: CEFTRIAXONE SOD 1 GM/NS 50 ML 50 ML IV SCH (13:32)
[2019-05-10] MEDS: INSULIN GLARGINE 100 UNITS/ML VIAL SQ SCH (17:16)
[2019-05-10] MEDS: HYDRALAZINE HCL 25 MG TAB PO SCH (17:37)
[2019-05-10] MEDS: FERROUS SULFATE 325 MG TAB PO SCH (17:38)
--- NOTE | 2019-05-10 19:06 | NUR ---
Report given to quantitative software engineer. Respiration even and unlabored without SOB. Call light in reach.
[2019-05-10] MEDS ORDERED: TRAZODONE HCL 50 MG TAB PO PRN (21:00)
[2019-05-10] MEDS ORDERED: TRAZODONE HCL 50 MG TAB PO SCH (21:00)
[2019-05-11] VITALS (8 sets, daily range): BP systolic 122–146; BP diastolic 56–72
[2019-05-11] MEDS: SODIUM CHLORIDE 0.45% 1,000 ML IV SCH ×2 (00:11→15:00)
--- NOTE | 2019-05-11 07:05 | NUR ---
PATIENT C/O IV LEAKING. IV SITE NOTED TO BE SWELLING. IV REMOVED WITH TIP INTACT. PRESSURE DRESSING APPLIED. PATIENT REFUSED NEW IV. PATIENT STATED "I WILL NOT LET YOU START AN IV UNTIL I SEE DR. PEREZ AND TALK TO HIM". EXPLAINED TO PATIENT THE IMPORTANCE AND NEED OF HAVING A NEW IV. PATIENT STILL REFUSED IV. REPORT GIVEN TO EMMA DOUGLAS.
[2019-05-11 07:07] LABS: BASOPHILS % 0.4 % (0.0-1.0); EOSINOPHILS # (AUTO) 0.2 (0.0-0.4); EOSINOPHILS % 1.9 % (0.0-6.0); HEMATOCRIT 22.7 % (38.2-49.6); HEMOGLOBIN 7.4 g/dL (14.0-18.0); LYMPHOCYTES # (AUTO) 1.8 (1.0-3.2); LYMPHOCYTES % 16.5 % (18.0-39.1); MEAN CORPUSCULAR HEMOGLOBIN 28.1 pg (28-32); MEAN CORPUSCULAR HGB CONC 32.6 g/dL (31-35); MEAN CORPUSCULAR VOLUME 86.3 fL (81-99); MONOCYTES % 8.9 % (4.4-11.3); NEUTROPHILS # (AUTO) 7.8 (2.1-6.9); PLATELET COUNT 170 x10e3/uL (140-360); RED BLOOD COUNT 2.63 x10e6/uL (4.3-5.7); RED CELL DISTRIBUTION WIDTH 12.7 % (11.7-14.4)
--- NOTE | 2019-05-11 07:15 | NUR ---
Received bedside shift report from off going nurse. Patient sitting at the edge of the bed, denies pain at this time. Call light within reach.
[2019-05-11 07:19] LABS: CALCIUM 7.3 mg/dL (8.4-10.2); CREATININE, SERUM 4.05 mg/dL (0.72-1.25)
[2019-05-11] MEDS: INSULIN LISPRO 100 UNIT/1 ML 3ML VIAL SQ SCH ×4 (07:30→20:50)
[2019-05-11] MEDS: INSULIN GLARGINE 100 UNITS/ML VIAL SQ SCH ×2 (07:30→16:30)
[2019-05-11] MEDS: FAMOTIDINE 20 MG/2 ML VIAL IV SCH ×2 (08:38→18:57)
[2019-05-11] MEDS: TAMSULOSIN HCL 0.4 MG CAP PO SCH (08:38)
[2019-05-11] MEDS: FERROUS SULFATE 325 MG TAB PO SCH ×2 (08:38→18:58)
[2019-05-11] MEDS: DOCUSATE SODIUM 100 MG CAP PO SCH ×2 (08:38→18:58)
[2019-05-11] MEDS: HYDRALAZINE HCL 25 MG TAB PO SCH ×2 (08:38→18:59)
[2019-05-11] MEDS: AMLODIPINE BESYLATE 10 MG TAB PO SCH (08:39)
[2019-05-11] MEDS: PHENAZOPYRIDINE HCL 100 MG TAB PO SCH ×3 (08:39→18:58)
--- NOTE | 2019-05-11 08:45 | NUR ---
Patient still refusing IV placement at this time. States "I really shouldn't be here. I want to go home because you fools aren't doing nothing for me." Reoriented to plan of care and status. Refused to verbalize understanding. Otherwise in stable condition, denies pain and allergies. Call light within reach.
--- NOTE | 2019-05-11 09:45 | NUR ---
Educated on IMM. Verbalized understanding and signed. Copy to patient transition folder and original placed on chart.
--- NOTE | 2019-05-11 10:45 | NUR ---
Dr. Longo at bedside to see patient. Ordered to titrate continuous bladder irrigation as needed. Ordered for two units of blood to be given with 10mg of IV lasix after each unit due to patient heart problems. Oxygen can be given as needed. Patient verbalized understanding and agrees to have IV placed. Orders entered.
[2019-05-11] MEDS ORDERED: SODIUM CHLORIDE 0.9% 250ML 250 ML IV ONE (12:00)
[2019-05-11] MEDS ORDERED: FUROSEMIDE INJ 10 MG/ML 2 ML VIAL IV PRN (12:00)
--- NOTE | 2019-05-11 15:30 | NUR ---
20 gauge IV inserted to right forearm. Site prepped with chlorhexidine, one attempt. Blood return noted, patent to flush. Dressing applied. Patient tolerated insertion well. IV fluids resumed as ordered. Patient states, "once you give me the blood I want this thing out." Will endorse patient request to oncoming nurse. Patient educated on need for IV access in the event of an emergency but still insists that IV should be removed after blood transfusion.
[2019-05-11] MEDS: CEFTRIAXONE SOD 1 GM/NS 50 ML 50 ML IV SCH (15:45)
--- NOTE | 2019-05-11 19:10 | NUR ---
Bedside report given to Baljinder CARTER. Patient resting in bed at this time. Refused all insulin this shift. Denies pain at this time, call light within reach.
[2019-05-11] MEDS ORDERED: SODIUM CHLORIDE 0.9% 250ML 250 ML ONE (22:58)
[2019-05-12] VITALS (8 sets, daily range): BP systolic 128–153; BP diastolic 63–80
[2019-05-12] MEDS: SODIUM CHLORIDE 0.45% 1,000 ML IV SCH ×3 (02:30→21:02)
[2019-05-12] MEDS ORDERED: SODIUM CHLORIDE 0.9% 250ML 250 ML ONE (03:30)
[2019-05-12] MEDS: INSULIN GLARGINE 100 UNITS/ML VIAL SQ SCH ×2 (07:30→16:08)
[2019-05-12] MEDS: INSULIN LISPRO 100 UNIT/1 ML 3ML VIAL SQ SCH ×4 (07:30→21:00)
[2019-05-12 09:21] LABS: BASOPHILS # (AUTO) 0.1 (0.0-0.1); BASOPHILS % 0.5 % (0.0-1.0); EOSINOPHILS # (AUTO) 0.4 (0.0-0.4); HEMATOCRIT 26.6 % (38.2-49.6); HEMOGLOBIN 8.9 g/dL (14.0-18.0); LYMPHOCYTES # (AUTO) 1.6 (1.0-3.2); LYMPHOCYTES % 15.1 % (18.0-39.1); MEAN CORPUSCULAR HEMOGLOBIN 27.1 pg (28-32); MEAN CORPUSCULAR HGB CONC 33.5 g/dL (31-35); MEAN CORPUSCULAR VOLUME 81.1 fL (81-99); MONOCYTES # (AUTO) 0.8 (0.2-0.8); MONOCYTES % 7.6 % (4.4-11.3); NEUTROPHILS # (AUTO) 7.6 (2.1-6.9); NEUTROPHILS % 71.6 % (38.7-80.0); PLATELET COUNT 167 x10e3/uL (140-360); RED BLOOD COUNT 3.28 x10e6/uL (4.3-5.7); RED CELL DISTRIBUTION WIDTH 14.6 % (11.7-14.4)
[2019-05-12 09:41] LABS: ANION GAP 10.4 mmol/L (8-16); CALCIUM 7.5 mg/dL (8.4-10.2); CREATININE, SERUM 4.44 mg/dL (0.72-1.25); POTASSIUM 3.4 mmol/L (3.5-5.1)
[2019-05-12 10:01] LABS: FERRITIN 273.39 ng/mL (21.81-274.66)
[2019-05-12] MEDS: HYDRALAZINE HCL 25 MG TAB PO SCH ×2 (10:04→16:05)
[2019-05-12] MEDS: DOCUSATE SODIUM 100 MG CAP PO SCH ×2 (10:04→15:59)
[2019-05-12] MEDS: FERROUS SULFATE 325 MG TAB PO SCH ×2 (10:04→15:59)
[2019-05-12] MEDS: AMLODIPINE BESYLATE 10 MG TAB PO SCH (10:05)
[2019-05-12] MEDS: PHENAZOPYRIDINE HCL 100 MG TAB PO SCH ×3 (10:05→17:15)
[2019-05-12] MEDS: TAMSULOSIN HCL 0.4 MG CAP PO SCH (10:05)
[2019-05-12] MEDS: FAMOTIDINE 20 MG/2 ML VIAL IV SCH ×2 (10:09→16:08)
--- NOTE | 2019-05-12 10:09 | NUR ---
pt's solis discontinued per MD orders. pt tolerated well.
[2019-05-12] MEDS ORDERED: BISACODYL 10 MG SUPP PR ONE (15:30)
--- NOTE | 2019-05-12 15:51 | NUR ---
pt had large BM; held Dulcolax suppository. will continue to monitor.
[2019-05-12] MEDS: CEFTRIAXONE SOD 1 GM/NS 50 ML 50 ML IV SCH (15:56)
[2019-05-13] VITALS: BP 139/66
--- NOTE | 2019-05-13 00:27 | NUR ---
C/O GENERALIZED PAIN.MEDICATED WITH TYLENOL#3.REFUSED TO PUT BED ALARM ON.
[2019-05-13 04:00] VITALS: BP 135/65
[2019-05-13] MEDS: SODIUM CHLORIDE 0.45% 1,000 ML IV SCH (05:00)
--- NOTE | 2019-05-13 05:00 | NUR ---
COLLECTING SERIAL URINE.
--- NOTE | 2019-05-13 06:00 | NUR ---
PATIENT REFUSED BLOOD COLLECTION FOR LAB WORKS.SUDDENTLY PATIENT BECAME AGITATED.WALKED OUT THE UNIT.TRIED TO CONVINCE THE PATIENT OF STAY HOSPITAL TILL PHYSICIANS'S ROUNDS AND REMOVE IV BEFORE LEAVE.BUT HE DID NOT LISTEN.NOTIFIED TO SAMPLE HAND AND HOSPITAL SECURITY.PATIENT DID NOT ALLOW TO REMOVE IV CANNULA.CALL PLACED TO POLICE.MEANWHILE PATIENT BECAME CALM DOWN.HE PULLED OUT IV HIMSELF.APPLIED PRESSURE DRESSING.SIGNED AMA.PATIENT ESCOTED THE VEHICLE SAFELY.NOTIFIED TO AND DR.D HOUSTON.
--- NOTE | 2019-05-28 21:17 | Operative Report ---
DATE OF PROCEDURE: 05/09/2019 SURGEON: Sergio Longo MD PREOPERATIVE DIAGNOSES: 1. Obstructive benign prostatic hyperplasia. 2. Right hydronephrosis. 3. Right nephrostomy. POSTOPERATIVE DIAGNOSES: 1. Obstructive benign prostatic hyperplasia. 2. Right hydronephrosis. 3. Right nephrostomy. OPERATIONS PERFORMED: 1. Cystourethroscopy with placement of a right-sided indwelling ureteral stent (separate procedure performed to relieve the hydronephrosis). 2. Removal of nephrostomy tube with fluoroscopic guidance (separate procedure performed from the nephrostomy tube). 3. Radiological services for supervision and interpretation of the nephrostomy tube removal. 4. Interpretation of retrograde ureteropyelography. 5. Supervision of fluoroscopy, no radiologist present. 6. Cystourethroscopy with transurethral resection of the prostate utilizing the PlasmaBand electrode. ANESTHESIA: General. COMPLICATIONS: None. CLINICAL SUMMARY: Taras Doshi is a 74-year-old man, who has had a previous TURP, but nevertheless has trilobar prostatic hypertrophy. He is brought for the above procedures. We were unable to stent the patient's ureter previously. We hope to do so at this time. He is aware of the risks of bleeding, infection, injury to adjacent structures, need for additional procedures. He also understands he will have a temporary indwelling ureteral stents and require followup and removal. He understood these risks and elected to proceed. OPERATIVE PROCEDURE IN DETAIL: Informed consent was verified. Tico was properly identified, taken to the operating room, placed on the cystoscopy table in supine position. Anesthesia was uneventfully begun. The patient was then carefully gently repositioned in the dorsal lithotomy position. All pressure points well padded. His genitalia and nephrostomy tube were prepared and draped in usual sterile fashion. The cystoscope sheath with visual obturator in place was atraumatically inserted into the patient's urethra and was guided down to unremarkable urethra through normal sphincteric region through the prostate bed, which was significant for trilobar prostatic hypertrophy with visual obstruction, went to the patient's bladder and then we drained it, we were able to negotiate the guidewire into the right ureter. With cystoscope and fluoroscopic guidance, we were able to deploy a right indwelling ureteral stent, coiled in the patient's kidneys as well as the patient's bladder. This disconnected the nephrostomy tube. We cut the nephrostomy tube to release the retaining suture and then we were able to negotiate the nephrostomy tube out and with fluoroscopic guidance, then discarded. Interpretation of retrograde ureteropyelography contrast was instilled in a retrograde fashion on the right-hand side. There was hydronephrosis present. The stent was in good position, coiled the patient's kidney as well as the patient's bladder at the end of the case. The cystoscope was withdrawn and resectoscope was atraumatically placed with the obturator. We then proceeded performing transurethral resection of the prostate from the bladder neck tube, but never passed the verumontanum. First we eliminated the median lobe and then we worked on both lateral lobes down the surgical capsule. This was an extensive procedure. All chips were evacuated. This was verified endoscopically. The hemostasis was obtained with pinpoint electrocautery. The resectoscope was withdrawn. A continuous irrigation and Marc catheter was then placed. It was irrigated to and fro to ensure it worked properly. A belladonna and opium suppository were placed revealing a large prostate, smooth and non-fluctuant length without any nodules. The patient was uneventfully reversed from anesthesia, taken to recovery in stable condition. Explicit postop instructions were given. We will monitor the patient throughout his inpatient course. Of course, ongoing urological followup is a must. Sergio Longo MD [place]/MODL /[id number] cc: Sergio Longo MD
--- NOTE | 2019-06-24 00:19 | Discharge Summary ---
CHIEF COMPLAINT: Benign prostatic hypertrophy with obstructive uropathy. FINAL DIAGNOSES: Status post transurethral resection of the prostate, anemia, [id number]-[id number] renal failure, diabetes type 2. DISPOSITION: AMA discharge. HOSPITAL COURSE: A 74-year-old male with past medical history of chronic renal failure, hypertension, diabetes, obstructive uropathy. He has recently had a left urostomy tube placed with a right stent by Dr. Longo, but the patient has not improved. The obstruction has not been relieved. Also known to have benign prostatic hypertrophy. He was admitted to the facility on 05/09/[address] Longo, where the patient underwent a TURP procedure. Now, the patient is stable postoperatively, being admitted for postop observation and now was asked to follow the patient medically while Dr. Longo continues following from Urology point of view. The patient is being admitted for care regarding obstructive uropathy, benign prostatic hypertrophy, status post TURP on the date of admission. Bilateral ureteral blockage, status post stent. [id number] renal failure, diabetes type 2, hypertension, anemia. The patient will continue surgical postoperative care, continue sliding scale sugar monitoring, renal followup with Dr. Jim. The patient was seen by Dr. Roth, the Nephrology associate regarding acute kidney injury on chronic kidney disease along with hyperkalemia and with Dr. Roth's review, his impression was acute kidney injury on chronic kidney disease, unknown baseline, suspect that the patient has stage 4/5 chronic kidney disease due to obstructive uropathy. We will need to avoid nephrotoxic medications. Hyperkalemia. The patient is currently receiving diabetic 2 g potassium restriction through the followup on the lab studies. Euvolemic on exam. Hypertension, controlled. Anemia, suspect secondary to chronic kidney disease. As mentioned, the patient underwent the TURP on the date of admission per Dr. Longo. The patient underwent cystourethroscopy with placement of a right-sided indwelling ureteral stent along with removal of nephrostomy tube along with cystourethroscopy with transurethral resection of the prostate utilizing the PlasmaBand electrode. No complications were noted, and the patient was admitted for post surgical watch. He was placed on the Med-Surg floor post procedure. He was continued on the medication orders by Dr. Longo as well is continued on routine daily medications. His blood sugars were being watched post sliding scale. He was being given medications for pain. The patient was also showing issues of hypokalemia, which was addressed with replenish medication. He has Marc on board. Postop, he was continuing to have less hematuria. Labs were initially showing elevated white count. The antibiotic coverage was through Rocephin. He developed an anemic state requiring transfusion of packed RBCs, received 2 units along with 10 mg of Lasix IV after each unit of blood. Followup potassiums was showing improvement. The Marc was able to be discontinued. Scheduling was being put in place for discharge, however, it was noted on 05/13/2019, that the patient was refusing any further blood collection for lab studies and noted that the patient became agitated while down the unit. Efforts were made to try to convince the patient of staying in the hospital until the physicians made rounds and for removal of the IV. The patient refused to listen and the patient did not allow to remove the IV cannula. The patient, however, calmed down, pulled out the IV on his own, applied pressure dressing, signed the AMA papers, and the patient was escorted to his vehicle. I was notified of the patient's AMA position and leaving the facility. The patient will be following up with Dr. Longo within 3 weeks. He will be continuing hopefully with his routine daily medications. Dictated by MARC Azevedo Thompson Dominguez MD CC/MODL /[id number]
== END 2019-05-13 06:20 | disposition left against medical advice (07) | DRG 713 ==
LOC: OR 13:22 → PACU V 16:29 → MED/SURG 20:09
PROVIDERS: ADMIT Internal Medicine; ATTEND Internal Medicine
PROC: BT1D1ZZ Fluoroscopy of Right Kidney, Ureter and Bladder using Low Osmolar Contrast (ICD-10-PCS; 2019-05-09)
PROC: 0TP5X0Z Removal of Drainage Device from Kidney, External Approach (ICD-10-PCS; 2019-05-09)
PROC: 30233N1 Transfusion of Nonautologous Red Blood Cells into Peripheral Vein, Percutaneous Approach (ICD-10-PCS; 2019-05-09)
PROC: 0T768DZ Dilation of Right Ureter with Intraluminal Device, Via Natural or Artificial Opening Endoscopic (ICD-10-PCS; principal; 2019-05-09 14:30)
PROC: 0VB08ZZ Excision of Prostate, Via Natural or Artificial Opening Endoscopic (ICD-10-PCS; 2019-05-09 14:30)
DX: N40.1 Benign prostatic hyperplasia with lower urinary tract symptoms (principal); N13.8 Other obstructive and reflux uropathy; N13.30 Unspecified hydronephrosis; N17.9 Acute kidney failure, unspecified; N18.5 Chronic kidney disease, stage 5; N18.4 Chronic kidney disease, stage 4 (severe); E11.9 Type 2 diabetes mellitus without complications; I10 Essential (primary) hypertension; Z93.6 Other artificial openings of urinary tract status; I12.9 Hypertensive chronic kidney disease with stage 1 through stage 4 chronic kidney disease, or unspecified chronic kidney disease; E87.5 Hyperkalemia; D63.1 Anemia in chronic kidney disease; E11.22 Type 2 diabetes mellitus with diabetic chronic kidney disease
CPT/HCPCS: 36415; 74420; 80048; 80053; 82728; 82948; 83540; 83735; 84132; 84466; 85025; 86850; 86900; 86920; 88305; 96372; C1758; C2617; J0696; J1100; J1170; J1580; J1815; J1817; J1940; J2001; J2250; J2270; J2405; J3010; J7030; J7050; P9016